=== PATIENT | female | born 1975 | race Caucasian/White ===

== ENCOUNTER 2020-05-09 14:22 | Emergency (ER) | payer OTHER ==
[~2020-05-09] VITALS: Ht 162.6 cm; Wt 93.9 kg
--- OUTSIDE RECORDS SUMMARY | 2020-05-09 14:28 | XMS REPORT | Continuity of Care Document ---
Author Author [facility] Organization [employer] Address Unknown Phone Unavailable Allergies There is no data. Medications There is no data. Problems There is no data. Procedures There is no data. Results There is no data. Encounters ACCT No. Visit Date/Time Discharge Status Pt. Type Provider Facility Loc./Unit Complaint [id number] 05/09/2020 14:24:[address] Emergency LAST TODD, ANABELLA [facility] ER LOWER BACK PAIN
[2020-05-09] MEDS ORDERED: METH-313 PO (15:15)
[2020-05-09] MEDS ORDERED: PRD20T PO (15:15)
[2020-05-09] MEDS ORDERED: HYDROcodone/APAP 5 MG/325 MG (LORTAB) TAB PO ONE (15:15)
[2020-05-09] MEDS ORDERED: ACET-1672 PO (15:15)
--- NOTE | 2020-05-09 15:15 | ED Back Pain ---
General Chief Complaint: Back Problems Stated Complaint: LOWER BACK PAIN Nursing Triage Note: PT TO ROOM 07 WITH C/O LOWER BACK PAIN X5 DAYS. PT STATES SHE THINKS IT IS HER BACK OR HER CIRRHOSIS OF THE LIVER OR HER KIDNEYS. PT REPORTS STATE 3 CIRRHOSIS OF THE LIVER. PT STATES SHE LIVES OUT OF STATE AND IS IN TOWN VISITING A FRIEND FOR THE PAST 3 WEEKS. Nursing Sepsis Screen: No Definite Risk Source of Information: Patient Exam Limitations: No Limitations History of Present Illness Date Seen by Provider: May 09, 2020 Time Seen by Provider: 15:10 Initial Comments To ER with reports of right sided low back pain. This began about 3 weeks ago, she is not sure if it's her cirrhosis, kidneys or just her back. She is from [place], here visiting a friend. No fevers chills or injury. No loss of bowel or bladder control or numbness of the genitals. Location: Lumbar Spine, Paraspinous Muscles Timing/Duration: Other Severity: Moderate Pain/Injury Location: Back Associated Symptoms: lower back pain Allergies and Home Medications Allergies Coded Allergies: NSAIDS (Non-Steroidal Anti-Inflamma (Verified Allergy, Unknown, 05/09/20) acetaminophen (Verified Allergy, Unknown, 05/09/20) aspirin (Verified Allergy, Unknown, 05/09/20) ketorolac (Verified Allergy, Unknown, 05/09/20) meperidine (Verified Allergy, Unknown, 05/09/20) nalbuphine (Verified Allergy, Unknown, 05/09/20) oxycodone (Verified Allergy, Unknown, 05/09/20) Patient Home Medication List Home Medication List Reviewed: Yes Review of Systems Constitutional: see HPI EENTM: see HPI Respiratory: no symptoms reported Cardiovascular: no symptoms reported Genitourinary: no symptoms reported Musculoskeletal: see HPI, back pain Skin: no symptoms reported Psychiatric/Neurological: No Symptoms Reported Past Skqovfu-Qvvnfg-Bseidk Hx Patient Social History Alcohol Use: Denies Use Recreational Drug Use: Yes (PT STATES HAS PRESCRIPTION FOR POT IN [place]) Drug of Choice: POT Smoking Status: Current Everyday Smoker Type Used: Cigarettes 2nd Hand Smoke Exposure: Yes Recent Foreign Travel: No Contact w/Someone Who Travel: No Recent Infectious Disease Expo: No Recent Hopitalizations: No Physical Abuse: No Sexual Abuse: No Mistreated: No Seasonal Allergies Seasonal Allergies: No Past Medical History Surgeries: Yes (X3 LAPS FOR CYSTS/ENDOMETRIOSIS) Appendectomy, Cardiac Respiratory: No 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) Heart Murmur, Valvular Heart Disease Neurological: Yes (6 YEARS SINCE LAST SEIZURE) Headaches /Migraines, Seizure Disorder Hx Total # of Abortions (Sp): 10 Female Reproductive Disorders: Endometriosis, Ovarian Cyst Gastrointestinal: Yes Liver Disease/Jaundice, Cirrhosis Musculoskeletal: Yes Back Injury Endocrine: No HEENT: No Cancer: No Psychosocial: Yes Anxiety, PTSD, Bipolar Integumentary: No 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 oz. kg; 35.00 BMI Method: General Appearance: No Apparent Distress, WD/WN Neck: Full Range of Motion, Normal Inspection Respiratory: No Accessory Muscle Use, No Respiratory Distress Gastrointestinal: Normal Bowel Sounds, Non Tender, Soft Back: Other (tender to palpation over the right sacroiliac joint) Extremity: Normal Capillary Refill, Normal Inspection Neurologic/Psychiatric: Alert, Oriented x3 Skin: Normal Color, Warm/Dry Progress/Results/Core Measures Results/Orders My Orders Orders - PIYUSH CHADWICK APRN Ua Culture If Indicated (05/09/20 15:05) Drug Screen Stat (Urine) (05/09/20 15:05) Hcg,Qualitative Serum (05/09/20 15:05) Cbc With Automated Diff (05/09/20 15:05) Comprehensive Metabolic Panel (05/09/20 15:05) Ct Lumbar Spine Wo (05/09/20 15:05) Hydrocodone/Apap 5/325 Tablet (Lortab 5 (05/09/20 15:15) Vital Signs/I&O 05/09/20 14:48 Temp 36.8 Pulse 78 Resp 19 B/P (MAP) 119/50 (73) O2 Delivery Room Air Blood Pressure Mean: 73 Departure Impression Primary Impression: Sacroiliac pain Disposition: 01 HOME, SELF-CARE Condition: Stable Departure-Patient Inst. Decision time for Depature: 15:12 Referrals: NO,LOCAL PHYSICIAN (PCP/Family) Primary Care Physician Patient Instructions: Low Back Pain (DC), Sacroiliac Joint Pain (DC) Add. Discharge Instructions: Follow-up with her regular doctor as soon as possible. Return to ER for any concerns. All discharge instructions reviewed with patient and/or family. Voiced understanding. Scripts Methocarbamol (Robaxin-750) 750 Mg Tablet 750 MG PO Q4H PRN for PAIN-MODERATE (5-7), #14 TAB Prov: PIYUSH CHADWICK APRN 05/09/20 Prednisone (Prednisone) 20 Mg Tab 20 MG PO DAILY, #8 TAB Prov: PIYUSH CHADWICK APRN 05/09/20 Acetaminophen/Diphenhydramine (Percogesic 325-12.5 mg Tablet) 1 Each Tablet 2 EACH PO Q4H, #20 TAB Prov: PIYUSH CHADWICK APRN 05/09/20 PIYUSH CHADWICK APRN May 09, 2020 15:15
[2020-05-09 15:20] LABS: BASOPHILS % (AUTO) 0 % (0-10); BILIRUBIN,URINE NEGATIVE (NEGATIVE); CLARITY,URINE CLEAR; COLOR,URINE YELLOW; EOSINOPHILS # (AUTO) 0.1 10^3/uL (0.0-0.3); EOSINOPHILS % (AUTO) 2 % (0-10); GLUCOSE, URINE (UA) NEGATIVE (NEGATIVE); HEMATOCRIT 37 % (35-52); HEMOGLOBIN 12.4 G/DL (11.5-16.0); KETONES,URINE NEGATIVE (NEGATIVE); LEUKOCYTE ESTERASE ,URINE NEGATIVE (NEGATIVE); LYMPHOCYTES # (AUTO) 1.7 X 10^3 (1.0-4.0); LYMPHOCYTES % (AUTO) 37 % (12-44); MEAN CORPUSCULAR HEMOGLOBIN 33 PG (25-34); MEAN CORPUSCULAR HGB CONC 33 G/DL (32-36); MEAN CORPUSCULAR VOLUME 100 FL (80-99); MEAN PLATELET VOLUME 9.7 FL (7.4-10.4); MONOCYTES # (AUTO) 0.4 X 10^3 (0.0-1.0); MONOCYTES % (AUTO) 9 % (0-12); NEUTROPHILS # (AUTO) 2.3 X 10^3 (1.8-7.8); NEUTROPHILS % (AUTO) 52 % (42-75); NITRITE,URINE NEGATIVE (NEGATIVE); PLATELET COUNT 98 10^3/uL (130-400); PROTEIN,URINE NEGATIVE (NEGATIVE); RED CELL DISTRIBUTION WIDTH 13.5 % (10.0-14.5); WHITE BLOOD COUNT 4.5 10^3/uL (4.3-11.0)
[2020-05-09 15:31] LABS: AMORPHOUS SEDIMENT,UR MOD AMOR PHOSPHATE /LPF; BACTERIA,URINE NEGATIVE /HPF
[2020-05-09 15:33] LABS: ALBUMIN 3.6 GM/DL (3.2-4.5); CHLORIDE 104 MMOL/L (98-107); POTASSIUM 3.7 MMOL/L (3.6-5.0); SODIUM 137 MMOL/L (135-145)
[2020-05-09 15:35] LABS: GLUCOSE 267 MG/DL (70-105); TOTAL PROTEIN 6.8 GM/DL (6.4-8.2)
[2020-05-09 15:36] LABS: AMPHETAMINE SCREEN, URINE NEGATIVE (NEGATIVE); BARBITURATE SCREEN URINE NEGATIVE (NEGATIVE); BENZODIAZEPINES SCREEN URINE NEGATIVE (NEGATIVE); CANNABINOID SCREEN, URINE POSITIVE (NEGATIVE); CARBON DIOXIDE 23 MMOL/L (21-32); COCAINE SCREEN URINE NEGATIVE (NEGATIVE); METHADONE STAT NEGATIVE (NEGATIVE); METHAMPHETAMINE SCREEN URINE S NEGATIVE (NEGATIVE); OPIATE SCREEN URINE NEGATIVE (NEGATIVE); OXYCODONE STAT NEGATIVE (NEGATIVE); PROPOXYPHENE STAT NEGATIVE (NEGATIVE); TRICYCLIC ANTIDEPRESSANTS SCRE NEGATIVE (NEGATIVE)
[2020-05-09 15:37] LABS: BILIRUBIN,TOTAL 0.8 MG/DL (0.1-1.0)
[2020-05-09 15:39] LABS: ALKALINE PHOSPHATASE 153 U/L (40-136); CREATININE SERUM 0.86 MG/DL (0.60-1.30); GFR ESTIMATED > 60
[2020-05-09 15:40] LABS: BUN/CREATININE RATIO 14
[2020-05-09 15:42] LABS: ALANINE AMINOTRANSFERASE 18 U/L (0-55)
--- NOTE | 2020-05-09 16:21 | Diagnostic Imaging Report ---
PROCEDURE: CT lumbar spine without contrast. TECHNIQUE: Multiple contiguous axial images were obtained through the lumbar spine without the use of intravenous contrast. Sagittal and coronal reformations were then performed. Auto Exposure Controls were utilized during the CT exam to meet ALARA standards for radiation dose reduction. INDICATION: Low back pain radiating down right leg into the mid thigh. History of previous old injury 20 years ago. CORRELATION STUDY: None. FINDINGS: The lumbar spinal alignment is anatomic. There is a limbus type vertebrae at the anterior superior L4 endplate. Very small blunting of the superior L3 endplate. Minimal endplate lipping at the L4 and L5 endplates. There is no acute appearing compression deformity or fracture of the lumbar spine. There is asymmetric sclerosis at the L5 and S1 endplates with associated degenerative disc disease, likely reactive. Endplate osteophyte does result in bilateral foraminal narrowing. Ligamentum flavum and facet hypertrophy result in moderate trefoil type spinal canal narrowing. At both L4-L5 and L3-L4 levels, there is mild broad-based disc bulge with mild endplate osteophyte formation again resulting in mild foraminal narrowing. Ligamentum hypertrophy does result in mild trefoil type spinal canal narrowing at the L4-L5 and L3-L4 levels. L2-L3 and L1-L2 levels are better preserved and unremarkable. There is non-specific soft tissue density in the high left anterior paraspinal region adjacent to the diaphragm. This could reflect a vessel or perhaps lymphadenopathy. IMPRESSION: Negative for acute bony abnormality about the lumbar spine. Degenerative changes result in various degrees of spinal canal and foraminal narrowing, particularly at the L5-S1, L4-L5 and L3-L4 levels. Dictated by: Dictated on workstation # [id number]
[2020-05-09 16:34] VITALS: BP 133/74
== END 2020-05-09 16:34 | disposition home or self-care (01) ==
LOC: ER 14:24
DX: M53.3 Sacrococcygeal disorders, not elsewhere classified (principal); F17.210 Nicotine dependence, cigarettes, uncomplicated; Z88.6 Allergy status to analgesic agent; Z88.5 Allergy status to narcotic agent; Z88.8 Allergy status to other drugs, medicaments and biological substances
CPT/HCPCS: 36415; 72131; 80053; 80306; 81000; 84703; 85025

== ENCOUNTER 2020-07-09 13:37 | Emergency (ER) | payer OTHER ==
[~2020-07-09] VITALS: Ht 162 cm; Wt 82.0 kg
[~2020-07-09 13:37] MED LIST: ACET-1672 PO; METH-313 PO; PRD20T PO
[2020-07-09] MEDS ORDERED: NS IV 1000 ML 1,000 ML IV SCH (13:45)
[2020-07-09] MEDS ORDERED: diphenhydrAMINE 50 MG/ML INJ (BENADRYL) IVP ONE (13:45)
[2020-07-09] MEDS ORDERED: PROCHLORPERAZINE 10 MG/2ML INJ (COMPAZINE) IV ONE (13:45)
--- NOTE | 2020-07-09 13:48 | ED General ---
General Stated Complaint: MIGRAINE Source of Information: Patient Exam Limitations: No Limitations History of Present Illness Date Seen by Provider: Jul 09, 2020 Time Seen by Provider: 13:46 Initial Comments To ER with a migraine headache for 2 days. This began mild and got progressively worse. No nausea or vomiting but she does have photophobia. She has a history of cirrhosis and has a history of hepatic encephalopathy. At that time she presented with a headache and visual hallucinations, she has had visual hallucinations intermittently for the past 2 days she states. Timing/Duration: 1-2 Days Severity: Moderate Associated Systoms: Headaches Allergies and Home Medications Allergies Coded Allergies: NSAIDS (Non-Steroidal Anti-Inflamma (Verified Allergy, Unknown, 05/09/20) acetaminophen (Verified Allergy, Unknown, 05/09/20) aspirin (Verified Allergy, Unknown, 05/09/20) ketorolac (Verified Allergy, Unknown, 05/09/20) meperidine (Verified Allergy, Unknown, 05/09/20) nalbuphine (Verified Allergy, Unknown, 05/09/20) oxycodone (Verified Allergy, Unknown, 05/09/20) Home Medications Acetaminophen/Diphenhydramine 1 Each Tablet, 2 EACH PO Q4H Prescribed by: PIYUSH CHADWICK on 05/09/20 1515 Methocarbamol 750 Mg Tablet, 750 MG PO Q4H PRN for PAIN-MODERATE (5-7) Prescribed by: PIYUSH CHADWICK on 05/09/20 1515 Prednisone 20 Mg Tab, 20 MG PO DAILY Prescribed by: PIYUSH CHADWICK on 05/09/20 1515 Patient Home Medication List Home Medication List Reviewed: Yes Review of Systems Review of Systems Constitutional: see HPI EENTM: see HPI Respiratory: no symptoms reported Cardiovascular: no symptoms reported Genitourinary: no symptoms reported Musculoskeletal: no symptoms reported Skin: no symptoms reported Psychiatric/Neurological: See HPI, Headache Hematologic/Lymphatic: No Symptoms Reported Past Pjlokbp-Tdywjn-Bzwdzh Hx Patient Social History Drug of Choice: POT Type Used: Cigarettes 2nd Hand Smoke Exposure: Yes Recent Foreign Travel: No Contact w/Someone Who Travel: No Recent Hopitalizations: No Seasonal Allergies Seasonal Allergies: No Past Medical History Surgeries: Yes (X3 LAPS FOR CYSTS/ENDOMETRIOSIS) Appendectomy, Cardiac Respiratory: No 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) Heart Murmur, Valvular Heart Disease Neurological: Yes (6 YEARS SINCE LAST SEIZURE) Headaches /Migraines, Seizure Disorder Female Reproductive Disorders: Endometriosis, Ovarian Cyst Gastrointestinal: Yes Liver Disease/Jaundice, Cirrhosis Musculoskeletal: Yes Back Injury Endocrine: No HEENT: No Cancer: No Psychosocial: Yes Anxiety, PTSD, Bipolar Integumentary: No 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 oz. kg; 35.00 BMI Method: General Appearance: No Apparent Distress, WD/WN, Other (no asterixis no apparent confusion, conversation is appropriate and speech is clear.) Eyes: Bilateral Eye Normal Inspection, Bilateral Eye PERRL, Bilateral Eye EOMI HEENT: PERRL/EOMI, TMs Normal Neck: Full Range of Motion, Normal Inspection Respiratory: No Accessory Muscle Use, No Respiratory Distress Cardiovascular: Regular Rate, Rhythm, Normal Peripheral Pulses Gastrointestinal: Normal Bowel Sounds, Non Tender, Soft Progress/Results/Core Measures Suspected Sepsis SIRS Temperature: Pulse: Respiratory Rate: Laboratory Tests 07/09/20 13:55: White Blood Count 7.0 Blood Pressure / Mean: Laboratory Tests 07/09/20 13:55: Creatinine 0.78, Platelet Count 138, Total Bilirubin 1.1H Results/Orders Lab Results Laboratory Tests Test 07/09/20 13:46 07/09/20 13:55 Range/Units Urine Color YELLOW Urine Clarity SL CLOUDY Urine pH 6.5 5-9 Urine Specific [place] 1.010 L 1.016-1.022 Urine Protein NEGATIVE NEGATIVE Urine Glucose (UA) NEGATIVE NEGATIVE Urine Ketones NEGATIVE NEGATIVE Urine Nitrite NEGATIVE NEGATIVE Urine Bilirubin 1+ H NEGATIVE Urine Urobilinogen 1.0 < = 1.0 MG/DL Urine Leukocyte Esterase TRACE H NEGATIVE Urine RBC (Auto) NEGATIVE NEGATIVE Urine RBC RARE /HPF Urine WBC 5-10 H /HPF Urine Squamous Epithelial Cells 5-10 /HPF Urine Crystals NONE /LPF Urine Bacteria FEW H /HPF Urine Casts NONE /LPF Urine Mucus SMALL H /LPF Urine Culture Indicated YES Urine Opiates Screen NEGATIVE NEGATIVE Urine Oxycodone Screen NEGATIVE NEGATIVE Urine Methadone Screen NEGATIVE NEGATIVE Urine Propoxyphene Screen NEGATIVE NEGATIVE Urine Barbiturates Screen NEGATIVE NEGATIVE Ur Tricyclic Antidepressants Screen NEGATIVE NEGATIVE Urine Phencyclidine Screen NEGATIVE NEGATIVE Urine Amphetamines Screen NEGATIVE NEGATIVE Urine Methamphetamines Screen NEGATIVE NEGATIVE Urine Benzodiazepines Screen POSITIVE H NEGATIVE Urine Cocaine Screen NEGATIVE NEGATIVE Urine Cannabinoids Screen POSITIVE H NEGATIVE White Blood Count 7.0 4.3-11.0 10^3/uL Red Blood Count 4.20 3.80-5.11 10^6/uL Hemoglobin 14.0 11.5-16.0 g/dL Hematocrit 41 35-52 % Mean Corpuscular Volume 97 80-99 fL Mean Corpuscular Hemoglobin 33 25-34 pg Mean Corpuscular Hemoglobin Concent 34 32-36 g/dL Red Cell Distribution Width 12.4 10.0-14.5 % Platelet Count 138 130-400 10^3/uL Mean Platelet Volume 9.7 9.0-12.2 fL Immature Granulocyte % (Auto) 0 % Neutrophils (%) (Auto) 52 42-75 % Lymphocytes (%) (Auto) 37 12-44 % Monocytes (%) (Auto) 7 0-12 % Eosinophils (%) (Auto) 4 0-10 % Basophils (%) (Auto) 0 0-10 % Neutrophils # (Auto) 3.6 1.8-7.8 10^3/uL Lymphocytes # (Auto) 2.6 1.0-4.0 10^3/uL Monocytes # (Auto) 0.5 0.0-1.0 10^3/uL Eosinophils # (Auto) 0.3 0.0-0.3 10^3/uL Basophils # (Auto) 0.0 0.0-0.1 10^3/uL Immature Granulocyte # (Auto) 0.0 0.0-0.1 10^3/uL Sodium Level 141 135-145 MMOL/L Potassium Level 3.5 L 3.6-5.0 MMOL/L Chloride Level 104 98-107 MMOL/L Carbon Dioxide Level 24 21-32 MMOL/L Anion Gap 13 5-14 MMOL/L Blood Urea Nitrogen 11 7-18 MG/DL Creatinine 0.78 0.60-1.30 MG/DL Estimat Glomerular Filtration Rate > 60 BUN/Creatinine Ratio 14 Glucose Level 145 H 70-105 MG/DL Calcium Level 9.3 8.5-10.1 MG/DL Corrected Calcium 9.2 8.5-10.1 MG/DL Total Bilirubin 1.1 H 0.1-1.0 MG/DL Aspartate Amino Transf (AST/SGOT) 46 H 5-34 U/L Alanine Aminotransferase (ALT/SGPT) 30 0-55 U/L Alkaline Phosphatase 146 H 40-136 U/L Ammonia 54 H 11-32 UMOL/L Total Protein 7.5 6.4-8.2 GM/DL Albumin 4.1 3.2-4.5 GM/DL My Orders Orders - PIYUSH CHADWICK APRN Ed Iv/Invasive Line Start (07/09/20 13:45) Cbc With Automated Diff (07/09/20 13:45) Comprehensive Metabolic Panel (07/09/20 13:45) Ammonia (07/09/20 13:45) Ns Iv 1000 Ml (Sodium Chloride 0.9%) (07/09/20 13:45) Diphenhydramine Injection (Benadryl Inje (07/09/20 13:45) Prochlorperazine Injection (Compazine In (07/09/20 13:45) Drug Screen Stat (Urine) (07/09/20 14:10) Ua Culture If Indicated (07/09/20 14:10) Urine Culture (07/09/20 13:46) Medications Given in ED Current Medications Medications Dose Ordered Sig/Isreal Route Start Time Stop Time Status Last Admin Dose Admin Diphenhydramine HCl 25 mg ONCE ONCE IVP 07/09/20 13:45 07/09/20 13:46 DC 07/09/20 14:04 25 MG Prochlorperazine Edisylate 10 mg ONCE ONCE IV 07/09/20 13:45 07/09/20 13:46 DC 07/09/20 14:04 10 MG Vital Signs/I&O 07/09/20 13:41 Temp 36.6 Pulse 62 Resp 18 B/P (MAP) 131/81 (98) O2 Delivery Room Air Capillary Refill : Departure Impression Primary Impression: Headache Qualified Codes: R51 - Headache Disposition: 01 HOME, SELF-CARE Condition: Stable Departure-Patient Inst. Decision time for Depature: 14:42 Referrals: NO,LOCAL PHYSICIAN (PCP/Family) Primary Care Physician Patient Instructions: Headache, Adult (DC), Urinary Tract Infection, Adult (DC) Add. Discharge Instructions: 1. Medication as directed 2. Take an extra dose of your lactulose for the next 3 days. Return to ER for any worsening. Follow-up with your doctor next week. Scripts Cefuroxime Axetil (Cefuroxime) 500 Mg Tablet 500 MG PO BID, #10 TAB Prov: PIYUSH CHADWICK APRN 07/09/20 PIYUSH CHADWICK APRN Jul 09, 2020 13:48
[2020-07-09 14:05] LABS: BASOPHILS % (AUTO) 0 % (0-10); EOSINOPHILS # (AUTO) 0.3 10^3/uL (0.0-0.3); EOSINOPHILS % (AUTO) 4 % (0-10); HEMATOCRIT 41 % (35-52); LYMPHOCYTES # (AUTO) 2.6 10^3/uL (1.0-4.0); LYMPHOCYTES % (AUTO) 37 % (12-44); MEAN CORPUSCULAR HEMOGLOBIN 33 pg (25-34); MEAN CORPUSCULAR HGB CONC 34 g/dL (32-36); MEAN CORPUSCULAR VOLUME 97 fL (80-99); MEAN PLATELET VOLUME 9.7 fL (9.0-12.2); MONOCYTES # (AUTO) 0.5 10^3/uL (0.0-1.0); MONOCYTES % (AUTO) 7 % (0-12); NEUTROPHILS # (AUTO) 3.6 10^3/uL (1.8-7.8); NEUTROPHILS % (AUTO) 52 % (42-75); PLATELET COUNT 138 10^3/uL (130-400)
[2020-07-09 14:13] LABS: ALBUMIN 4.1 GM/DL (3.2-4.5); CHLORIDE 104 MMOL/L (98-107); POTASSIUM 3.5 MMOL/L (3.6-5.0); SODIUM 141 MMOL/L (135-145)
[2020-07-09 14:14] LABS: CLARITY,URINE SL CLOUDY; COLOR,URINE YELLOW; GLUCOSE, URINE (UA) NEGATIVE (NEGATIVE); KETONES,URINE NEGATIVE (NEGATIVE); LEUKOCYTE ESTERASE ,URINE TRACE (NEGATIVE); NITRITE,URINE NEGATIVE (NEGATIVE); PH,URINE 6.5 (5-9); PROTEIN,URINE NEGATIVE (NEGATIVE)
[2020-07-09 14:14] LABS: AMMONIA 54 UMOL/L (11-32); CALCIUM 9.3 MG/DL (8.5-10.1)
[2020-07-09 14:15] LABS: GLUCOSE 145 MG/DL (70-105); TOTAL PROTEIN 7.5 GM/DL (6.4-8.2)
[2020-07-09 14:17] LABS: BILIRUBIN,TOTAL 1.1 MG/DL (0.1-1.0); CARBON DIOXIDE 24 MMOL/L (21-32)
[2020-07-09 14:19] LABS: ALKALINE PHOSPHATASE 146 U/L (40-136); CREATININE SERUM 0.78 MG/DL (0.60-1.30); GFR ESTIMATED > 60
[2020-07-09 14:20] LABS: BUN/CREATININE RATIO 14
[2020-07-09 14:22] LABS: ALANINE AMINOTRANSFERASE 30 U/L (0-55)
[2020-07-09 14:26] LABS: AMPHETAMINE SCREEN, URINE NEGATIVE (NEGATIVE); BARBITURATE SCREEN URINE NEGATIVE (NEGATIVE); BENZODIAZEPINES SCREEN URINE POSITIVE (NEGATIVE); CANNABINOID SCREEN, URINE POSITIVE (NEGATIVE); COCAINE SCREEN URINE NEGATIVE (NEGATIVE); METHADONE STAT NEGATIVE (NEGATIVE); METHAMPHETAMINE SCREEN URINE S NEGATIVE (NEGATIVE); OPIATE SCREEN URINE NEGATIVE (NEGATIVE); OXYCODONE STAT NEGATIVE (NEGATIVE); PROPOXYPHENE STAT NEGATIVE (NEGATIVE); TRICYCLIC ANTIDEPRESSANTS SCRE NEGATIVE (NEGATIVE)
[2020-07-09 14:27] LABS: BACTERIA,URINE FEW /HPF; BILIRUBIN,URINE 1+ (NEGATIVE); RBC,URINE RARE /HPF
[2020-07-09] MEDS ORDERED: CEFU500T63 PO (14:49)
[2020-07-09] MEDS ORDERED: LACTULOSE SYRUP 10GM/15ML (ENULOSE) 30ML UDC PO ONE (15:00)
[2020-07-09] MEDS ORDERED: CEFDINIR 300 MG (OMNICEF) CAP PO ONE (15:00)
[2020-07-09 15:09] VITALS: BP 108/72
--- NOTE | 2020-07-09 15:09 | NUR ---
PT DISCHARGED TO HOME W/ INSTR. PT TO TAKE MEDS DIRECTED, F/U W/ PCP ET RETURN IF SYMPTOMS CHANGE OR GET WORSE. UNDERSTANDING VOICED, NO QUESTIONS.
== END 2020-07-09 15:09 | disposition home or self-care (01) ==
LOC: EDUNIT# 13:37 → ER 13:39
DX: R51.9 Headache, unspecified (principal); Z77.22 Contact with and (suspected) exposure to environmental tobacco smoke (acute) (chronic); Z88.6 Allergy status to analgesic agent; Z88.5 Allergy status to narcotic agent; Z88.8 Allergy status to other drugs, medicaments and biological substances; Z79.52 Long term (current) use of systemic steroids
CPT/HCPCS: 36415; 80053; 80306; 81000; 82140; 85025; 87088